=== PATIENT | male | born 2000 | race Two or more races ===

== ENCOUNTER 2021-02-17 06:43 | Emergency (ER) | payer OTHER ==
[~2021-02-17] VITALS: Ht 177.8 cm; Wt 113.6 kg
[~2021-02-17 06:43] MED LIST: NO MEDS
[2021-02-17] MEDS ORDERED: IBUPROFEN 600 MG TABLET PO ONE (07:30)
[2021-02-17 09:55] VITALS: BP 130/68
== END 2021-02-17 10:19 | disposition home or self-care (01) ==
LOC: EMS 06:44
DX: R07.89 Other chest pain (principal); R05 Cough; Z20.822 Contact with and (suspected) exposure to COVID-19
CPT/HCPCS: 71045; 71250; 93005; 99285; U0003

== ENCOUNTER 2022-04-18 10:39 | Emergency (ER) | payer OTHER ==
[~2022-04-18] VITALS: Ht 177.8 cm; Wt 125.0 kg
[2022-04-18 11:14] VITALS: BP 129/75
== END 2022-04-18 14:28 | disposition home or self-care (01) ==
LOC: EMS 10:39
DX: S93.402A Sprain of unspecified ligament of left ankle, initial encounter (principal); X58.XXXA Exposure to other specified factors, initial encounter; Y93.89 Activity, other specified; Y92.89 Other specified places as the place of occurrence of the external cause; Y99.8 Other external cause status
CPT/HCPCS: 29515; 99283

== ENCOUNTER 2023-01-02 12:37 | Emergency (ER) | payer OTHER ==
[~2023-01-02] VITALS: Ht 177.8 cm; Wt 113.6 kg
[2023-01-02] MEDS ORDERED: CYCLOBENZAPRINE HCL 10 MG TABLET PO ONE (14:30)
[2023-01-02] MEDS ORDERED: LIDOCAINE 5% TRANSDERMAL PATCH TD ONE (14:30)
[2023-01-02] MEDS: KETOROLAC TROMETHAMINE 30 MG/ML VIAL IM ONE ×2 (14:31→14:35)
[2023-01-02] MEDS ORDERED: CYCL-448 PO (15:28)
[2023-01-02] MEDS ORDERED: IBUP-1492 PO (15:28)
[2023-01-02] MEDS ORDERED: LIDO700A15 TP (15:28)
[2023-01-02 15:34] VITALS: BP 142/68
== END 2023-01-02 15:35 | disposition home or self-care (01) ==
LOC: EMS 12:37
DX: M54.50 Low back pain, unspecified (principal)
CPT/HCPCS: 99283; J1885

== ENCOUNTER 2024-02-01 09:38 | Emergency (ER) | payer MEDICAID, OTHER ==
[~2024-02-01] VITALS: Ht 180.3 cm; Wt 122.7 kg
[~2024-02-01 09:38] MED LIST changes: -NO MEDS; +OXYC-490 PO
[2024-02-01 09:45] VITALS: BP 114/80; PULSE 89; RESP 16; TEMP 98.7
== END 2024-02-01 10:20 | disposition home or self-care (01) ==
LOC: EMS 09:43
DX: T23.2 Burn of second degree of wrist and hand (principal)
CPT/HCPCS: 99282; Z7502

== ENCOUNTER 2025-08-13 10:46 | Emergency (ER) | payer MEDICAID, OTHER ==
[~2025-08-13] VITALS: Ht 177.8 cm; Wt 127.3 kg
[2025-08-13 10:50] VITALS: BP 140/85; PULSE 72; RESP 18; TEMP 98.3; O2SAT 99
== END 2025-08-13 12:40 | disposition left against medical advice (07) ==
LOC: EMS 10:47
DX: M54.50 Low back pain, unspecified (principal); Z53.21 Procedure and treatment not carried out due to patient leaving prior to being seen by health care provider
CPT/HCPCS: 99281; Z7502